=== PATIENT | male | born 1970 | race Caucasian/White ===

== ENCOUNTER 2024-03-25 10:36 | Inpatient (IN) | payer MEDICARE, MEDICAID ==
[2024-03-25 12:20] LABS: Amphetamine Screen,Urine Not Detected (NotDetected); Barbiturate Screen,Urine Not Detected (NotDetected); Benzodiazepines Screen,Urine Detected (NotDetected); Cocaine Screen,Urine Not Detected (NotDetected); Methadone Screen, Urine Not Detected (NotDetected); Opiate Screen,Urine Not Detected (NotDetected); Oxycodone Screen, Urine Not Detected (NotDetected); Phencyclidine Screen,Urine Not Detected (NotDetected); Tricyclic Antidepressant,Urine Not Detected (NotDetected); Urn Cannabinoid Scrn Not Detected (NotDetected)
--- NOTE | 2024-03-25 13:20 | ED ---
Psych HPI - General Chief Complaint: Psychiatric Symptoms Stated Complaint: mental health Time Seen by Provider: 03/25/24 10:37 Source: patient, RN notes reviewed Mode of arrival: ambulatory Limitations: no limitations - History of Present Illness Initial Comments: 53-year-old male presents emergency department with chief complaint of depression, suicide ideation patient states that he is bipolar, depression. Patient states that he had an episode over the weekend in which she took multiple Ativan that is prescribed. Patient states that he slept most of Sunday states that he still remains depressed and states that he feels like he cannot harm self he denies any alcohol or drug use. Patient states he currently has a therapist. Patient denies any homicidal ideation - Related Data Home Medications Medication Instructions Recorded Confirmed ARIPiprazole [Abilify] 30 mg PO DAILY 01/12/14 03/25/24 Esomeprazole Magnesium [NexIUM] 40 mg PO DAILY 01/12/14 03/25/24 LORazepam [Ativan] 1 mg PO DAILY PRN 01/12/14 03/25/24 lisinopriL [Zestril] 20 mg PO DAILY 01/12/14 03/25/24 Atorvastatin [Lipitor] 80 mg PO HS 03/25/24 03/25/24 Divalproex ER [Depakote ER] 1,000 mg PO BID 03/25/24 03/25/24 Empagliflozin [Jardiance] 25 mg PO DAILY 03/25/24 03/25/24 Ezetimibe [Zetia] 10 mg PO DAILY 03/25/24 03/25/24 Insulin Glargine,Hum.rec.anlog 70 units SQ HS 03/25/24 03/25/24 [Toujeo Max Solostar] Levothyroxine Sodium [Synthroid] 75 mcg PO DAILY 03/25/24 03/25/24 Mv-Min/Folic/K1/Lycopen/Lutein 1 tab PO DAILY 03/25/24 03/25/24 [Centrum Silver Men Tablet] Tirzepatide [Mounjaro] 7.5 mg SQ BAHENA 03/25/24 03/25/24 Venlafaxine HCl [Effexor XR] 225 mg PO DAILY 03/25/24 03/25/24 Allergies Allergy/AdvReac Type Severity Reaction Status Date / Time No Known Allergies Allergy Verified 03/25/24 11:26 Review of Systems ROS Statement: Those systems with pertinent positive or pertinent negative responses have been documented in the HPI. ROS Other: All systems not noted in ROS Statement are negative. Past Medical History Past Medical History: Asthma, Diabetes Mellitus, GERD/Reflux, Hyperlipidemia, Hypertension Additional Past Medical History / Comment(s): STATES TOLD SLIGHT ASTHMA (NO MEDS) History of Any Multi-Drug Resistant Organisms: None Reported Past Surgical History: Hernia Repair Additional Past Surgical History / Comment(s): UMBILICAL HERNIA Past Anesthesia/Blood Transfusion Reactions: No Reported Reaction, Motion Sickness Past Psychological History: Anxiety, Bipolar, Depression Smoking Status: Never smoker Past Alcohol Use History: Occasional Past Drug Use History: None Reported General Exam Limitations: no limitations General appearance: alert, in no apparent distress Head exam: Present: atraumatic, normocephalic, normal inspection Eye exam: Present: normal appearance, PERRL, EOMI. Absent: scleral icterus, conjunctival injection, periorbital swelling ENT exam: Present: normal exam, normal oropharynx, mucous membranes moist Neck exam: Present: normal inspection. Absent: tenderness, meningismus, lymphadenopathy Respiratory exam: Present: normal lung sounds bilaterally. Absent: respiratory distress, wheezes, rales, rhonchi, stridor Cardiovascular Exam: Present: regular rate, normal rhythm, normal heart sounds. Absent: systolic murmur, diastolic murmur, rubs, gallop, clicks Neurological exam: Present: alert, oriented X3, CN II-XII intact Psychiatric exam: Present: depressed, flat affect Course Vital Signs 03/25/24 10:37 Temperature 97.9 F Pulse Rate 80 Respiratory 20 Rate Blood Pressure 134/82 O2 Sat by Pulse 99 Oximetry Medical Decision Making - Medical Decision Making Was pt. sent in by a medical professional or institution (, PA, MACHINE EGG WASHER, urgent care, hospital, or senior living...) When possible be specific @ -No Did you speak to anyone other than the patient for history (EMS, parent, family, police, friend...)? What history was obtained from this source @ -No Did you review nursing and triage notes (agree or disagree)? Why? @ -I reviewed and agree with nursing and triage notes Were old charts reviewed (outside hosp., previous admission, EMS record, old EKG, old radiological studies, urgent care reports/EKG's, senior living records)? Report findings @ -No old charts were reviewed Differential Diagnosis (chest pain, altered mental status, abdominal pain women, abdominal pain men, vaginal bleeding, weakness, fever, dyspnea, syncope, headache, dizziness, GI bleed, back pain, seizure, CVA, palpatations, mental health, musculoskeletal)? @ -Differential Mental Health Depression, anxiety, bipolar, psychosis, schizophrenia, borderline personality, situational depression, adjustment disorder, behavioral disorder, brain tumor, malingering, substance abuse, encephalopathy, medication reaction, dementia, hypothyroidism, degenerative neurologic disorder, lupus.... This is not meant to be all-inclusive list EKG interpreted by me (3pts min.). @ -None X-rays interpreted by me (1pt min.). @ -None done CT interpreted by me (1pt min.). @ -None done U/S interpreted by me (1pt. min.). @ -None done What testing was considered but not performed or refused? (CT, X-rays, U/S, labs)? Why? @ -None What meds were considered but not given or refused? Why? @ -None Did you discuss the management of the patient with other professionals (professionals i.e. , PA, MACHINE EGG WASHER, lab, RT, psych nurse, perinatal social worker, operating engineer apprentice, teacher, aoc director combat plans officer, special education case manager)? Give summary @ -EPS evaluated patient discussed case with psychiatrist recommends inpatient treatment. Was smoking cessation discussed for >3mins.? @ -No Was critical care preformed (if so, how long)? @ -No Were there social determinants of health that impacted care today? How? (Homelessness, low income, unemployed, alcoholism, drug addiction, transportation, low edu. Level, literacy, decrease access to med. care, skilled nursing, rehab)? @ -No Was there de-escalation of care discussed even if they declined (Discuss DNR or withdrawal of care, Hospice)? DNR status @ -No What co-morbidities impacted this encounter? (DM, HTN, Smoking, COPD, CAD, Cancer, CVA, ARF, Chemo, Hep., AIDS, mental health diagnosis, sleep apnea, morbid obesity)? @ -Bipolar, depression Was patient admitted / discharged? Hospital course, mention meds given and route, prescriptions, significant lab abnormalities, going to OR and other pertinent info. @ -Admitted to 3 W. Undiagnosed new problem with uncertain prognosis? @ -No Drug Therapy requiring intensive monitoring for toxicity (Heparin, Nitro, Insulin, Cardizem)? @ -No Were any procedures done? @ -No Diagnosis/symptom? @ -Bipolar disorder, depression, suicidal ideation Acute, or Chronic, or Acute on Chronic? @ -Acute Uncomplicated (without systemic symptoms) or Complicated (systemic symptoms)? @ -Complicated Side effects of treatment? @ -No Exacerbation, Progression, or Severe Exacerbation? @ -No Poses a threat to life or bodily function? How? (Chest pain, USA, ID, pneumonia, PE, COPD, DKA, ARF, appy, cholecystitis, CVA, Diverticulitis, Homicidal, Suicidal, threat to staff... and all critical care pts) @ -Yes suicidal - Lab Data Lab Results 03/25/24 Range/Units 11:36 Urine Opiates Screen Not Detected (NotDetected) Ur Oxycodone Screen Not Detected (NotDetected) Urine Methadone Screen Not Detected (NotDetected) Ur Barbiturates Screen Not Detected (NotDetected) U Tricyclic Antidepress Not Detected (NotDetected) Ur Phencyclidine Scrn Not Detected (NotDetected) Ur Amphetamines Screen Not Detected (NotDetected) U Methamphetamines Scrn Not Detected (NotDetected) U Benzodiazepines Scrn Detected H (NotDetected) Urine Cocaine Screen Not Detected (NotDetected) U Marijuana (THC) Screen Not Detected (NotDetected) Disposition Clinical Impression: Depression, Suicidal ideation, Bipolar disorder Disposition: TRANSFER TO PSYCH HOSP/UNIT Referrals: Jin Oneil DO [Primary Care Provider] - 1-2 days Time of Disposition: 13:20
[2024-03-25 15:30] LABS: Glucose,Whole Blood 303 mg/dL (70-110)
[2024-03-25] MEDS ORDERED: MAGNESIUM HYDROXIDE 2,400 MG/30 ML CUP PO PRN (16:37)
[2024-03-25] MEDS ORDERED: MAG HYDROX/AL HYDROX/SIMETH 355 ML BOTTLE PO PRN (16:37)
[2024-03-25] MEDS ORDERED: ACETAMINOPHEN TAB 325 MG TAB PO PRN (16:37)
[2024-03-25] MEDS ORDERED: HALOPERIDOL LACTATE 5 MG/ML 1 ML VIAL IM PRN (16:37)
[2024-03-25] MEDS ORDERED: IBUPROFEN 600 MG TAB PO PRN (16:37)
[2024-03-25] MEDS ORDERED: haloperidoL 5 MG TAB PO PRN (16:37)
[2024-03-25] MEDS ORDERED: LORazepam 2 MG/ML INJ IM PRN (16:37)
[2024-03-25 18:23] LABS: Glucose,Whole Blood 247 mg/dL (70-110)
[2024-03-25 19:22] VITALS: RESP 16
[2024-03-25 20:04] LABS: Appearance,Urine Clear (Clear); Bilirubin,Urine Negative (Negative); Blood,Urine Negative (Negative); Color,Urine Colorless; Glucose,Urine (UA) 4+ (Negative); Ketones,Urine Negative (Negative); Leukocyte Esterase,Urine Negative (Negative); Nitrite,Urine Negative (Negative); PH, Urine 6.5 (5.0-8.0); Protein,Urine Negative (Negative); Specific Gravity,Urine 1.025 (1.001-1.035); Urobilinogen,Urine <2.0 mg/dL (<2.0)
[2024-03-25] MEDS: DIVALPROEX ER 500 MG TAB.ER.24H PO SCH (20:42)
[2024-03-25] MEDS: ATORVASTATIN 80 MG TAB PO SCH (20:42)
[2024-03-25 21:34] LABS: Glucose,Whole Blood 275 mg/dL (70-110)
[2024-03-25] MEDS ORDERED: INSULIN DETEMIR (LEVEMIR) 100 UNIT/ML SYR SQ SCH (22:00)
[2024-03-25] MEDS: INSULIN DETEMIR (LEVEMIR) 100 UNIT/ML SYR SQ SCH (22:04)
[2024-03-26] MEDS: LEVOTHYROXINE 75 MCG TAB PO SCH (06:11)
[2024-03-26 07:54] LABS: Glucose,Whole Blood 137 mg/dL (70-110)
[2024-03-26 08:22] LABS: Basophils % (A) 1 %; Eosinophils # (A) 0.2 k/uL (0-0.7); Eosinophils % (A) 3 %; HCT 41.7 % (39.0-53.0); HGB 13.4 gm/dL (13.0-17.5); Lymphocytes # (A) 2.3 k/uL (1.0-4.8); Lymphocytes % (A) 31 %; MCH 27.8 pg (25.0-35.0); MCHC 32.2 g/dL (31.0-37.0); MCV 86.1 fL (80.0-100.0); Monocytes # (A) 0.6 k/uL (0-1.0); Monocytes % (A) 8 %; Neutrophils # (A) 4.2 k/uL (1.3-7.7); Neutrophils % (A) 57 %; Platelet Count 251 k/uL (150-450); RBC 4.84 m/uL (4.30-5.90); RDW 15.2 % (11.5-15.5); WBC 7.5 k/uL (3.8-10.6)
[2024-03-26 08:38] LABS: ALT 21 U/L (4-49); AST 33 U/L (17-59); African American GFR (CKD) >90 (>60 ml/min/1.73 sqM); Alkaline Phosphatase 44 U/L (38-126); Anion Gap 10 mmol/L; Blood Urea Nitrogen 16 mg/dL (9-20); Calcium 9.6 mg/dL (8.4-10.2); Carbon Dioxide 25 mmol/L (22-30); Chloride 105 mmol/L (98-107); Glucose 139 mg/dL (74-99); Non-African American GFR(CKD) >90 (>60 ml/min/1.73 sqM); Potassium 4.1 mmol/L (3.5-5.1); Sodium 140 mmol/L (137-145); Total Bilirubin 0.7 mg/dL (0.2-1.3); Total Protein 6.9 g/dL (6.3-8.2)
[2024-03-26] MEDS: EZETIMIBE 10 MG TAB PO SCH (08:51)
[2024-03-26] MEDS: DAPAGLIFLOZIN PROPANEDIOL 10 MG TABLET PO SCH (08:51)
[2024-03-26] MEDS: ARIPiprazole 15 MG TAB PO SCH (08:51)
[2024-03-26] MEDS: NICOTINE 14MG/24HR PATCH TRANSDERM SCH (08:51)
[2024-03-26] MEDS: PANTOPRAZOLE 40 MG TABLET PO SCH (08:52)
[2024-03-26] MEDS: VENLAFAXINE HCL ER 75 MG CAP PO SCH (08:52)
[2024-03-26] MEDS: lisinopriL 20 MG TAB PO SCH (08:52)
[2024-03-26] MEDS: MULTIVITAMINS, THERA 1 EACH TAB PO SCH (08:52)
--- NOTE | 2024-03-26 12:38 | P.HP ---
Psychiatric H&P - . H&P Date: 03/26/24 History & Physical: Allergies Allergy/AdvReac Type Severity Reaction Status Date / Time No Known Allergies Allergy Verified 03/25/24 11:26 Vital Signs Temp 97.2 F L 03/26/24 06:11 Pulse 95 03/26/24 06:11 Resp 16 03/26/24 06:11 BP 109/71 03/26/24 06:11 Pulse Ox 96 03/26/24 06:11 FiO2 Intake & Output 03/25/24 03/26/24 03/26/24 18:59 06:59 18:59 Weight 141.974 kg 141.974 kg Laboratory Last Values WBC 7.5 k/uL (3.8-10.6) 03/26/24 07:54 RBC 4.84 m/uL (4.30-5.90) 03/26/24 07:54 Hgb 13.4 gm/dL (13.0-17.5) 03/26/24 07:54 Hct 41.7 % (39.0-53.0) 03/26/24 07:54 MCV 86.1 fL (80.0-100.0) 03/26/24 07:54 MCH 27.8 pg (25.0-35.0) 03/26/24 07:54 MCHC 32.2 g/dL (31.0-37.0) 03/26/24 07:54 RDW 15.2 % (11.5-15.5) 03/26/24 07:54 Plt Count 251 k/uL (150-450) 03/26/24 07:54 MPV 8.0 03/26/24 07:54 Neutrophils % 57 % 03/26/24 07:54 Lymphocytes % 31 % 03/26/24 07:54 Monocytes % 8 % 03/26/24 07:54 Eosinophils % 3 % 03/26/24 07:54 Basophils % 1 % 03/26/24 07:54 Neutrophils # 4.2 k/uL (1.3-7.7) 03/26/24 07:54 Lymphocytes # 2.3 k/uL (1.0-4.8) 03/26/24 07:54 Monocytes # 0.6 k/uL (0-1.0) 03/26/24 07:54 Eosinophils # 0.2 k/uL (0-0.7) 03/26/24 07:54 Basophils # 0.0 k/uL (0-0.2) 03/26/24 07:54 Sodium 140 mmol/L (137-145) 03/26/24 07:54 Potassium 4.1 mmol/L (3.5-5.1) 03/26/24 07:54 Chloride 105 mmol/L (98-107) 03/26/24 07:54 Carbon Dioxide 25 mmol/L (22-30) 03/26/24 07:54 Anion Gap 10 mmol/L 03/26/24 07:54 BUN 16 mg/dL (9-20) 03/26/24 07:54 Creatinine 0.68 mg/dL (0.66-1.25) 03/26/24 07:54 Est GFR (CKD-EPI)AfAm >90 (>60 ml/min/1.73 sqM) 03/26/24 07:54 Est GFR (CKD-EPI)NonAf >90 (>60 ml/min/1.73 sqM) 03/26/24 07:54 Glucose 139 mg/dL (74-99) H 03/26/24 07:54 POC Glucose (mg/dL) 137 mg/dL (70-110) H 03/26/24 07:53 POC Glu Immigration Officer ID Rigo Raza 03/26/24 07:[address] Glu mg/dL 186 mg/dL 03/26/24 07:54 Hemoglobin A1c 8.1 % (<=6.0) H 03/26/24 07:54 Calcium 9.6 mg/dL (8.4-10.2) 03/26/24 07:54 Total Bilirubin 0.7 mg/dL (0.2-1.3) 03/26/24 07:54 AST 33 U/L (17-59) 03/26/24 07:54 ALT 21 U/L (4-49) 03/26/24 07:54 Alkaline Phosphatase 44 U/L (38-126) 03/26/24 07:54 Total Protein 6.9 g/dL (6.3-8.2) 03/26/24 07:54 Albumin 4.0 g/dL (3.5-5.0) 03/26/24 07:54 TSH 3.390 mIU/L (0.465-4.680) 03/26/24 07:54 Urine Color Colorless 03/25/24 19:51 Urine Appearance Clear (Clear) 03/25/24 19:51 Urine pH 6.5 (5.0-8.0) 03/25/24 19:51 Ur Specific [place] 1.025 (1.001-1.035) 03/25/24 19:51 Urine Protein Negative (Negative) 03/25/24 19:51 Urine Glucose (UA) 4+ (Negative) H 03/25/24 19:51 Urine Ketones Negative (Negative) 03/25/24 19:51 Urine Blood Negative (Negative) 03/25/24 19:51 Urine Nitrite Negative (Negative) 03/25/24 19:51 Urine Bilirubin Negative (Negative) 03/25/24 19:51 Urine Urobilinogen <2.0 mg/dL (<2.0) 03/25/24 19:51 Ur Leukocyte Esterase Negative (Negative) 03/25/24 19:51 Urine Opiates Screen Not Detected (NotDetected) 03/25/24 11:36 Ur Oxycodone Screen Not Detected (NotDetected) 03/25/24 11:36 Urine Methadone Screen Not Detected (NotDetected) 03/25/24 11:36 Ur Barbiturates Screen Not Detected (NotDetected) 03/25/24 11:36 U Tricyclic Antidepress Not Detected (NotDetected) 03/25/24 11:36 Ur Phencyclidine Scrn Not Detected (NotDetected) 03/25/24 11:36 Ur Amphetamines Screen Not Detected (NotDetected) 03/25/24 11:36 U Methamphetamines Scrn Not Detected (NotDetected) 03/25/24 11:36 U Benzodiazepines Scrn Detected (NotDetected) H 03/25/24 11:36 Urine Cocaine Screen Not Detected (NotDetected) 03/25/24 11:36 U Marijuana (THC) Screen Not Detected (NotDetected) 03/25/24 11:36 SARS-CoV-2 (PCR) Not Detected (Not Detectd) 03/25/24 13:40 03/26/24 12:18 IDENTIFYING DATA: Patient is a 53-year-old single male, on disability and living in [place] CHIEF COMPLAINT: Suicide attempt via overdose HPI: Patient presented to the hospital on 03/25 with mental health concerns. Per ED note, "patient states that he had an episode over the weekend in which he took multiple Ativan that is prescribed." EPS evaluation revealed "patient reports suicide attempt via OD of 29 1 mg Ativan on 03/23/2024. Patient states after he woke up he was still angry and thus he decided to get help. Patient reports several plans such as jumping off of an overpass into traffic, buying a gun to shoot himself in the ware, or go behind the garage to slit his wrist bleed out. Patient states experiencing passive suicidal ideations often." Patient seen and evaluated on the unit but was agreeable to talk to the ad writer in office. He reports he "blew up over something small" and that he took 29 Ativan on Sunday in an attempt to harm himself however he ended up sleeping most of it off. He states having some issues with his [employer] order and even though he was able to figure it out he was still irritable and that this was what prompted the OD. He states having low frustration tolerance and that this tends to lead to anger and irritability that then leads to suicidal thoughts. He reports history of destruction of property when upset however reports feeling remorseful afterwards. He states this occurs roughly 12 times a year. He denied any sleep or appetite difficulties, low energy or anhedonia but did report hopelessness when he has inability to control his anger. He reports visual hallucinations on occasion described as seeing animals however he states this is not distressing for him and he is able to identify them as not being real. He reports anxiety and restlessness. He reports a history of elevated mood lasting several days in addition to racing thoughts and increased goal- directed activities. He reports adherence with his medications. Patient denies any suicidal or homicidal ideations intent or plan. At this time patient denies any auditory or visual hallucinations. Patient denies any flight of ideas racing thoughts and increased in goal directed behavior. PAST PSYCHIATRIC HISTORY: Patient has a history of bipolar disorder. He is currently prescribed Abilify 30 mg daily, Ativan 1 mg as needed daily, Depakote ER 1000 mg twice daily, Effexor XR 225 mg daily. He reports trialing several psychotropic medications in the past including Seroquel, Latuda, Zyprexa, Prozac, Zoloft, Lexapro, Cymbalta, Wellbutrin. Patient denies any previous psychiatric hospitalizations. Patient sees ad writer Jordan Brody at [facility]. Patient reports 1 prior suicide attempt via OD many years ago PMH: as per ER note ALLERGIES: as per EMR SUBSTANCE USE HISTORY: Patient denies any substances however reports previously using cannabis. FAMILY PSYCHIATRIC/SUBSTANCE USE HISTORY: Patient reports bipolar disorder in his mother, alcohol abuse in his grandmother, and that a cousin committed suicide SOCIAL HISTORY: Patient was born and raised in [place] but currently staying in [place]. He is single and has no children and living with a roommate. He completed school up to the 12th grade. MENTAL STATUS EXAM: General Appearance: Patient appears to be stated age is alert, directable, and attempts to cooperate. Patient appears to have poor hygiene and grooming. Behavior: Patient is seated without any agitated behavior. Speech: Patient's speech is fluent and nonpressured. Mood/Affect: Patient reports their mood is "all right", affect is congruent and constricted. Suicidality/Homicidality: Patient denies having any homicidal ideation intent or plan. Denies any suicidal ideations intent or plan Perceptions: Patient denies any visual hallucinations and denies any auditory hallucinations Though content/process: There is no evidence of any delusional thought content and thought process is linear and goal-directed. Memory and concentration: AOX3, grossly intact for the purposes of this session. Can spell "WORLD" backwards Judgment and insight: Poor STRENGTHS/WEAKNESSES: strength is that patient is resilient and uses no substances, willing to seek help. Weakness is that patient has poor judgment and is impulsive INTELLECT: Average IMPRESSIONS: Suicide attempt via overdose on Ativan Bipolar II disorder with mixed features Intermittent explosive disorder PLAN: -Patient is admitted under voluntary status to MHU for stabilization of psychiatric symptoms and safety. Patient has signed adult voluntary form and medication consent and is placed in patient's chart. -Medications : Discontinue Abilify 30 mg and start Risperdal 1 mg at bedtime for bipolar disorder/mood stabilization, continue Depakote ER 1000 mg twice daily, Effexor XR 225 mg daily -Ativan and Haldol PRN for agitation/aggression -Ordered Depakote level to be obtained tomorrow morning -Patient was informed of the risks, benefits and side effects of the medication and patient verbally consented to taking the medications. Patient signed med consent form and was placed in chart. -Internal Medicine consult to perform medical evaluation and physical. -NRT -not needed as patient does not smoke -SW on board for discharge planning. Encourage patient to participate in groups to work on coping skills.
[2024-03-26 12:43] LABS: Glucose,Whole Blood 162 mg/dL (70-110)
[2024-03-26 16:28] LABS: Chol/HDL Ratio 3.48 Ratio; LDL Cholesterol,Calculated 44.8 mg/dL (0.0-131.0)
[2024-03-26 17:37] LABS: Glucose,Whole Blood 157 mg/dL (70-110)
[2024-03-26 20:08] LABS: Glucose,Whole Blood 261 mg/dL (70-110)
[2024-03-26] MEDS: risperiDONE 1 MG TAB PO SCH (21:44)
[2024-03-26] MEDS: LORazepam 1 MG TAB PO PRN (21:46)
[2024-03-27 07:46] LABS: Glucose,Whole Blood 158 mg/dL (70-110)
[2024-03-27] MEDS ORDERED: DEXTROSE 50% SYRINGE 50 ML IVP PRN ×2 (08:42)
--- NOTE | 2024-03-27 09:05 | P.MDCNMH ---
History of Present Illness H&P Date: 03/26/24 This is a 53-year-old male who was recently admitted under psychiatric services for psychiatric evaluation as patient had significant depression with suicidal ideation and over the weekend took multiple medications that were prescribed to him including Ativan. Patient reports he follows with Dr. Oneil in the outpatient setting with a past medical history of diabetes, GERD, hyperlipidemia, hypertension, anxiety/bipolar depression denies any illicit drug use never smoked and occasionally drinks alcohol. Patient has been having increased depression with suicidal thoughts and was admitted for further evaluation. Patient is voluntarily admitted to [facility]. On exam vital signs are stable and patient denies any significant complaints has been compliant with group therapy sessions and compliant with medications. No reports of chest pain or shortness of breath. Patient denies any nausea or vomiting and has been tolerating diet. Patient reports his blood sugars are controlled and does use insulin at home. Patient does take Toujeo and will continue with long-acting and sliding scale while here and may resume his Toujeo and Mounjaro in the outpatient setting. Review of systems: Constitutional: No reports of fatigue, fever, or chills Cardiovascular: No reports of chest pain or palpitations Respiratory: No reports of shortness of breath or cough GI: No reports of nausea, no reports of vomiting, no diarrhea : No reports of dysuria or retention Neurovascular: No reports of generalized weakness All medications have been reviewed PHYSICAL EXAMINATION: GENERAL: The patient is alert and oriented x4, Well developed, well nourished. Morbidly obese HEENT: Pupils are round and equally reacting to light. EOMI. no scleral icterus. No conjunctival pallor. Normocephalic, atraumatic. No pharyngeal erythema. No thyromegaly. CARDIOVASCULAR: S1 and S2 muffled PULMONARY: diminished breath sounds bilaterally with no wheezing or rhonchi noted. ABDOMEN: soft. Nontender on exam. obese. non-distended, normoactive bowel sounds. No palpable organomegaly. MUSCULOSKELETAL: No joint swelling or deformity. EXTREMITIES: No cyanosis, clubbing, or pedal edema. NEUROLOGICAL: Gross neurological examination did not reveal any focal deficits. Diffuse weakness SKIN: No rashes. Assessment: Severe depression with suicidal ideation, took multiple pills with attempted suicide History of anxiety/depression/bipolar Reported history of asthma although patient reports he does not have asthma maybe as a child and does not take any medications for this Diabetes mellitus, type 2 insulin-dependent uncontrolled with hyperglycemia GERD Hyperlipidemia Hypertension Obesity with a BMI of 37.1 GI prophylaxis DVT prophylaxis Full code Plan: Recommend to continue with current medications and management and admitted to psychiatric services on 3 W. for further psychiatric evaluation. Home medications reviewed and resumed as appropriate Recommend sliding scale with Accu-Cheks before meals and at bedtime and also will add long-acting. Continue to hold Mounjaro and Toujeo until outpatient follow-up Patient encouraged to attend group therapy sessions and compliance with medications Thank you kindly for this consultation. Please do not hesitate to contact us with any questions or concerns Recommend follow-up with Dr. Oneil in the outpatient setting on discharge The impression and plan of care has been dictated by Ashanti Nicolas, nurse practitioner as directed. Dr. Adrian MD I have performed a history and examination and MDM of this patient, discussed the same with the dictator, and agree with the dictator's assessment and plan as written ,documented as a scribe. Based on total visit time, I have performed more than 50% of the visit. Any additional findings or plans will be noted. Past Medical History Past Medical History: Asthma, Diabetes Mellitus, GERD/Reflux, Hyperlipidemia, Hypertension Additional Past Medical History / Comment(s): STATES TOLD SLIGHT ASTHMA (NO MEDS) History of Any Multi-Drug Resistant Organisms: None Reported Past Surgical History: No Surgical Hx Reported, Hernia Repair Additional Past Surgical History / Comment(s): UMBILICAL HERNIA Past Anesthesia/Blood Transfusion Reactions: No Reported Reaction, Motion Sickness Past Psychological History: Anxiety, Bipolar, Depression Smoking Status: Never smoker Past Alcohol Use History: Occasional Past Drug Use History: None Reported Medications and Allergies Home Medications Medication Instructions Recorded Confirmed Type ARIPiprazole [Abilify] 30 mg PO DAILY 01/12/14 03/25/24 History Esomeprazole Magnesium [NexIUM] 40 mg PO DAILY 01/12/14 03/25/24 History LORazepam [Ativan] 1 mg PO DAILY PRN 01/12/14 03/25/24 History lisinopriL [Zestril] 20 mg PO DAILY 01/12/14 03/25/24 History Atorvastatin [Lipitor] 80 mg PO HS 03/25/24 03/25/24 History Divalproex ER [Depakote ER] 1,000 mg PO BID 03/25/24 03/25/24 History Empagliflozin [Jardiance] 25 mg PO DAILY 03/25/24 03/25/24 History Ezetimibe [Zetia] 10 mg PO DAILY 03/25/24 03/25/24 History Insulin Glargine,Hum.rec.anlog 70 units SQ HS 03/25/24 03/25/24 History [Toujeo Max Solostar] Levothyroxine Sodium [Synthroid] 75 mcg PO DAILY 03/25/24 03/25/24 History Mv-Min/Folic/K1/Lycopen/Lutein 1 tab PO DAILY 03/25/24 03/25/24 History [Centrum Silver Men Tablet] Tirzepatide [Mounjaro] 7.5 mg SQ BAHENA 03/25/24 03/25/24 History Venlafaxine HCl [Effexor XR] 225 mg PO DAILY 03/25/24 03/25/24 History Allergies Allergy/AdvReac Type Severity Reaction Status Date / Time No Known Allergies Allergy Verified 03/25/24 11:26 Physical Exam Vitals: Vital Signs Temp Pulse Pulse Resp BP BP Pulse Ox 03/26/24 06:11 97.2 F L 95 16 109/71 96 03/25/24 19:01 97.7 F 73 16 128/71 03/25/24 18:22 78 18 135/79 99 03/25/24 10:37 97.9 F 80 20 134/82 99 Intake and Output 03/25/24 03/26/24 03/26/24 22:59 06:59 14:59 Other: Weight 141.974 kg Cranial Nerve Examination - Cranial Nerves Cranial Nerve I- Olfactory: Intact Cranial Nerve II- Optic: Intact Cranial Nerve III- Oculomotor: Intact Cranial Nerve IV- Trochlear: Intact Cranial Nerve V- Trigeminal: Intact Cranial Nerve - Abducens: Intact Cranial Nerve VII- Facial: Intact Cranial Nerve VIII- Auditory: Intact Cranial Nerve IX- Glossopharyngeal: Intact Cranial Nerve X- Vagus: Intact Cranial Nerve XI- Accessory: Intact Cranial Nerve XII- Hypoglossal: Intact Results CBC & Chem 7: 03/26/24 07:54 03/26/24 07:54 Labs: Abnormal Lab Results - Last 24 Hours (Table) 03/25/24 03/25/24 03/25/24 Range/Units 11:36 15:21 18:21 Glucose (74-99) mg/dL POC Glucose (mg/dL) 303 H 247 H (70-110) mg/dL Urine Glucose (UA) (Negative) U Benzodiazepines Scrn Detected H (NotDetected) 03/25/24 03/25/24 03/26/24 Range/Units 19:51 21:33 07:53 Glucose (74-99) mg/dL POC Glucose (mg/dL) 275 H 137 H (70-110) mg/dL Urine Glucose (UA) 4+ H (Negative) U Benzodiazepines Scrn (NotDetected) 03/26/24 Range/Units 07:54 Glucose 139 H (74-99) mg/dL POC Glucose (mg/dL) (70-110) mg/dL Urine Glucose (UA) (Negative) U Benzodiazepines Scrn (NotDetected)
--- NOTE | 2024-03-27 11:54 | P.PN ---
Progress Note - Text Progress Note Date: 03/27/24 Interval History: Patient was seen wandering the hallways and was directable and agreeable to sp tony with bond underwriter in the office. He states feeling better today. Depakote level came back subtherapeutic at 38.7 and he was in agreement with titrating this today. He wishes to return home today due to Halloween and feels like he has made significant improvements in that he is more positive and remorseful for his past actions. He states he did sleep poorly last night but only because he slept mostly during the day. He reports good appetite and expressed no other concerns today. At this time patient denies any suicidal or homicidal ideations, intent or plan. Patient denies any auditory, visual hallucinations and denies any paranoia or delusions. Patient denies any side effects from the medications and has been compliant with meds. Mental Status Exam: General Appearance: Patient appears to be stated age is alert, directable, and cooperative. Hygiene and grooming improved Behavior: Patient is calmly seated without any agitated behavior. Speech: Patient's speech is fluent and nonpressured. Mood/Affect: Mood is improving mildly, affect is congruent and blunted. Suicidality/Homicidality: Patient denies having any suicidal or homicidal ideation intent or plan. Perceptions: Patient denies any visual hallucinations and denies any auditory hallucinations Though content/process: There is no evidence of any delusional thought content and thought process is linear and goal-directed. Memory and concentration: AOX3, grossly intact for the purposes of this session Judgment and insight: Improving mildly Assessment Suicide attempt via overdose on Ativan Bipolar 2 disorder with mixed features Intermittent explosive disorder Plan: -Patient continues to meet criteria for inpatient psychiatric admission for symptom stabilization and safety. Patient has signed adult voluntary form and medication consent and was placed in patient's chart. -Medications: Abilify 30 discontinued yesterday, increase Risperdal to 2 mg at bedtime for bipolar disorder/mood stabilization, increase Depakote ER to 1000 mg daily and 1500 mg at bedtime, continue Effexor XR to 25 mg daily for depression -When necessary Ativan and Haldol for agitation/aggression. -Labs: reviewed -NRT - nicotine patch -SW on board for discharge planning. Encouraged the patient to participate in milieu. Anticipate discharge back home tomorrow, roommate confirmed no firearms in the home
[2024-03-27 12:43] LABS: Glucose,Whole Blood 201 mg/dL (70-110)
[2024-03-27] MEDS: INSULIN ASPART (NovoLOG) 100 UNIT/ML VIAL SQ SCH ×2 (12:58→17:41)
[2024-03-27 17:25] LABS: Glucose,Whole Blood 170 mg/dL (70-110)
[2024-03-27 19:53] LABS: Glucose,Whole Blood 182 mg/dL (70-110)
[2024-03-27] MEDS: DIVALPROEX ER 500 MG TAB.ER.24H PO SCH (21:08)
[2024-03-27] MEDS: risperiDONE 2 MG TAB PO SCH (21:08)
[2024-03-28 07:04] VITALS: PULSE 70; TEMP 97.3
[2024-03-28 07:05] VITALS: BP 110/64
[2024-03-28 07:57] LABS: Glucose,Whole Blood 144 mg/dL (70-110)
[2024-03-28] MEDS: DIVALPROEX ER 500 MG TAB.ER.24H PO SCH (08:58)
[2024-03-28] MEDS ORDERED: DIVALPROEX ER 500 MG TAB.ER.24H PO SCH (09:00)
--- NOTE | 2024-03-28 12:39 | P.DS ---
Providers Date of admission: 03/25/24 15:05 Expected date of discharge: 03/28/24 Attending physician: Sury Jones MD Consults: 03/25/24 16:37 Consult Physician [facility]ine [facility] Reason/Comments: H&P and medical and Toujeo dosage Do you want consulting provider notified?: Yes Primary care physician: Jin Oneil - Discharge Diagnosis(es) (1) Suicide attempt by benzodiazepine overdose Status: Acute Priority: High (2) Bipolar II disorder Status: Acute Priority: High (3) Intermittent explosive disorder Status: Acute Priority: High Hospital Course: Admission HPI: Admission note was completed by display card writer "Patient presented to the hospital on 03/25 with mental health concerns. Per ED note, "patient states that he had an episode over the weekend in which he took multiple Ativan that is prescribed." EPS evaluation revealed "patient reports suicide attempt via OD of 29 1 mg Ativan on 03/23/2024. Patient states after he woke up he was still angry and thus he decided to get help. Patient reports several plans such as jumping off of an overpass into traffic, buying a gun to shoot himself in the ware, or go behind the garage to slit his wrist bleed out. Patient states experiencing passive suicidal ideations often." Patient seen and evaluated on the unit but was agreeable to talk to the display card writer in office. He reports he "blew up over something small" and that he took 29 Ativan on Sunday in an attempt to harm himself however he ended up sleeping most of it off. He states having some issues with his [employer] order and even though he was able to figure it out he was still irritable and that this was what prompted the OD. He states having low frustration tolerance and that this tends to lead to anger and irritability that then leads to suicidal thoughts. He reports history of destruction of property when upset however reports feeling remorseful afterwards. He states this occurs roughly 12 times a year. He denied any sleep or appetite difficulties, low energy or anhedonia but did report hopelessness when he has inability to control his anger. He reports visual hallucinations on occasion described as seeing animals however he states this is not distressing for him and he is able to identify them as not being real. He reports anxiety and restlessness. He reports a history of elevated mood lasting several days in addition to racing thoughts and increased goal-directed activities. He reports adherence with his medications. Patient denies any suicidal or homicidal ideations intent or plan. At this time patient denies any auditory or visual hallucinations. Patient denies any flight of ideas racing thoughts and increased in goal directed behavior. " Hospital course: Upon admission to the unit patient was directable and agreeable to commence treatment and signed adult voluntary form.. Patient got along well with other patients on the unit and followed unit protocol. Patient was compliant with the medications and denied any side effects throughout hospital course. Patient was started on Risperdal and this was titrated up to 2 mg at bedtime with Abilify 30 mg been discontinued for bipolar disorder/mood stabilization, Depakote ER was increased to 1000 mg daily and 1500 mg at bedtime for mood stabilization, Effexor continued at 225 mg daily for depression. Depakote level at 1000 twice daily came back subtherapeutic at 38.7. Patient spoke of his stressors and engaged in therapy both group and individual. Patient's anger was addressed in the cycle of anger was discussed with patient encouraged to utilize coping skills when warning signs are present. Patient was also seen by medical team for history and physical exam. Throughout the course of the hospitalization patient gradually improved with regards to mood, anxiety, sleep and returned back to their baseline level of functioning. On the day of discharge patient denied any suicidal or homicidal ideations intent or plan denied any auditory or visual hallucinations. The patient denied any access to guns or weapons. Patient denied any paranoia and did not endorse any delusions. Patient does not have a significant history of substance abuse and was counseled on abstaining from all substances including alcohol and marijuana. Patient was also counseled on the medications and need for regular compliance and was encouraged to follow- up with their outpatient appointment for mental health and also for primary care. Prior to discharge a family meeting will be arranged by licensed social worker to answer any questions and ensure safety upon discharge including making sure that guns/weapons are either removed from the home or locked away. Patient to return home with roommate who confirmed no firearms in the home. He will follow-up with [facility]. Mental status exam: General Appearance: Patient appears to be stated age is alert, pleasant, and cooperative. Patient is in no acute distress and has improved hygiene and grooming Behavior: Patient is calmly seated without any agitated behavior. Speech: Patient's speech is fluent and nonpressured. Mood/Affect: Patient reports their mood is "better", affect is congruent and euthymic. Suicidality/Homicidality: Patient denies having any suicidal or homicidal ideation intent or plan. Perceptions: Patient denies any auditory or visual hallucinations. Though content/process: There is no evidence of any delusional thought content and thought process is linear and goal-directed. More future oriented Memory and concentration: AOX3, grossly intact for the purposes of this session. Can spell "WORLD" backwards correctly. Judgment and insight: Improved Impression: Suicide attempt via overdose on benzodiazepine (ativan) Bipolar 2 disorder with mixed features Intermittent explosive disorder Plan: -Continue with discharge today as patient has improved and stabilized psychiatrically and is not currently an imminent threat to themself and/or others. -Continue medications: Risperdal 2 mg at bedtime, Depakote ER 1000 mg daily and 1500 mg at bedtime, Effexor XR 225 mg daily -Patient was counseled on the need for medication compliance and appropriate follow-up at mental health and also primary care for medical issues. Patient verbalized understanding and agreed. -Social work to help coordinate patients discharge today. also to ensure safe home environment that guns/weapons are either removed from the home or locked away. Social work also to arrange for patients follow up appointments [facility] for psychiatric care along with follow up with primary care provider. -Patient counseled on abstaining from recreational drugs and marijuana and alcohol. Was informed/educated on the adverse effects on their physical and mental health. Patient verbally agreed and understood. -Patient was instructed to return to the hospital or seek immediate medical care if their psychiatric or medical symptoms do worsen or reoccur. Abnormal Labs 03/25/24 03/25/24 03/25/24 11:36 15:21 18:21 Glucose POC Glucose (mg/dL) 303 H 247 H Hemoglobin A1c Triglycerides HDL Cholesterol Urine Glucose (UA) U Benzodiazepines Scrn Detected H 03/25/24 03/25/24 03/26/24 19:51 21:33 07:53 Glucose POC Glucose (mg/dL) 275 H 137 H Hemoglobin A1c Triglycerides HDL Cholesterol Urine Glucose (UA) 4+ H U Benzodiazepines Scrn 03/26/24 03/26/24 03/26/24 07:54 07:54 12:42 Glucose 139 H POC Glucose (mg/dL) 162 H Hemoglobin A1c 8.1 H Triglycerides 186.00 H HDL Cholesterol 33.00 L Urine Glucose (UA) U Benzodiazepines Scrn 03/26/24 03/26/24 03/27/24 17:36 20:06 07:44 Glucose POC Glucose (mg/dL) 157 H 261 H 158 H Hemoglobin A1c Triglycerides HDL Cholesterol Urine Glucose (UA) U Benzodiazepines Scrn 03/27/24 03/27/24 03/27/24 12:41 17:23 19:52 Glucose POC Glucose (mg/dL) 201 H 170 H 182 H Hemoglobin A1c Triglycerides HDL Cholesterol Urine Glucose (UA) U Benzodiazepines Scrn 03/28/24 07:56 Glucose POC Glucose (mg/dL) 144 H Hemoglobin A1c Triglycerides HDL Cholesterol Urine Glucose (UA) U Benzodiazepines Scrn Vital Signs Temp 97.3 F L 03/28/24 07:03 Pulse 70 03/28/24 07:03 Resp 16 03/28/24 07:03 BP 110/64 03/28/24 07:03 Pulse Ox 97 03/27/24 06:42 FiO2 Allergies Allergy/AdvReac Type Severity Reaction Status Date / Time No Known Allergies Allergy Verified 03/25/24 11:26 Patient Condition at Discharge: Stable Plan - Discharge Summary Discharge Rx Participant: No New Discharge Prescriptions: New Divalproex ER [Depakote ER] 1,000 mg PO DAILY 30 Days #60 tab Divalproex ER [Depakote ER] 1,500 mg PO HS 30 Days #90 tab risperiDONE [RisperDAL] 2 mg PO HS 30 Days #30 tab Continue lisinopriL [Zestril] 20 mg PO DAILY Esomeprazole Magnesium [NexIUM] 40 mg PO DAILY Atorvastatin [Lipitor] 80 mg PO HS Mv-Min/Folic/K1/Lycopen/Lutein [Centrum Silver Men Tablet] 1 tab PO DAILY Tirzepatide [Mounjaro] 7.5 mg SQ BAHENA 30 Days #4 each Empagliflozin [Jardiance] 25 mg PO DAILY Ezetimibe [Zetia] 10 mg PO DAILY Levothyroxine Sodium [Synthroid] 75 mcg PO DAILY Venlafaxine HCl [Effexor XR] 225 mg PO DAILY 30 Days #90 cap Insulin Glargine,Hum.rec.anlog [Toujeo Max Solostar] 70 units SQ HS 30 Days #4 each Discontinued LORazepam [Ativan] 1 mg PO DAILY PRN PRN Reason: Anxiety ARIPiprazole [Abilify] 30 mg PO DAILY Divalproex ER [Depakote ER] 1,000 mg PO BID Discharge Medication List Esomeprazole Magnesium [NexIUM] 40 mg PO DAILY 01/12/14 [History] lisinopriL [Zestril] 20 mg PO DAILY 01/12/14 [History] Atorvastatin [Lipitor] 80 mg PO HS 03/25/24 [History] Empagliflozin [Jardiance] 25 mg PO DAILY 03/25/24 [History] Ezetimibe [Zetia] 10 mg PO DAILY 03/25/24 [History] Levothyroxine Sodium [Synthroid] 75 mcg PO DAILY 03/25/24 [History] Mv-Min/Folic/K1/Lycopen/Lutein [Centrum Silver Men Tablet] 1 tab PO DAILY 03/25/24 [History] Divalproex ER [Depakote ER] 1,000 mg PO DAILY 30 Days #60 tab 03/28/24 [Rx] Divalproex ER [Depakote ER] 1,500 mg PO HS 30 Days #90 tab 03/28/24 [Rx] Insulin Glargine,Hum.rec.anlog [Toujeo Max Solostar] 70 units SQ HS 30 Days #4 each 03/28/24 [Rx] Tirzepatide [Mounjaro] 7.5 mg SQ BAHENA 30 Days #4 each 03/28/24 [Rx] Venlafaxine HCl [Effexor XR] 225 mg PO DAILY 30 Days #90 cap 03/28/24 [Rx] risperiDONE [RisperDAL] 2 mg PO HS 30 Days #30 tab 03/28/24 [Rx] Follow up Appointment(s)/Referral(s): Nusrat Pérez [Outside] - 04/08/24 12:00 pm (04/08 @ 12:00 (earliest available) ) Jin Oneil DO [Primary Care Provider] - 1-2 days Patient Instructions/Handouts: Bipolar Disorder (DC), Depression (DC) Activity/Diet/Wound Care/Special Instructions: [facility] Discharge Info Avoid the use of street drugs and alcohol. Take all medications as prescribed. When you are in need of refills on your medications, please contact your outpatient medical provider and/or outpatient psychiatrist. Please go to your scheduled outpatient appointments for aftercare treatment. If symptoms return or become worse, call the crisis line at or and/or visit the nearest emergency room for assistance. National Suicide and Crisis Lifeline - call or text 598. Discharge Disposition: HOME SELF-CARE
--- NOTE | 2024-03-29 05:21 | P.PN ---
Subjective Progress Note Date: 03/28/24 This is a 53-year-old male who was recently admitted under psychiatric services for psychiatric evaluation as patient had significant depression with suicidal ideation and over the weekend took multiple medications that were prescribed to him including Ativan. Patient reports he follows with Dr. Oneil in the outpatient setting with a past medical history of diabetes, GERD, hyperlipidemia, hypertension, anxiety/bipolar depression denies any illicit drug use never smoked and occasionally drinks alcohol. Patient has been having increased depression with suicidal thoughts and was admitted for further evaluation. Patient is voluntarily admitted to [facility]. On exam vital signs are stable and patient denies any significant complaints has been compliant with group therapy sessions and compliant with medications. No reports of chest pain or shortness of breath. Patient denies any nausea or vomiting and has been tolerating diet. Patient reports his blood sugars are controlled and does use insulin at home. Patient does take Toujeo and will continue with long-acting and sliding scale while here and may resume his Toujeo and Mounjaro in the outpatient setting. 03/28/2024 Patient is seen in follow-up this morning scheduled for discharge and being requested to complete the med reconciliation as patient takes insulins. Patient has been instructed to follow-up with Dr. Oneil outpatient and continue monitoring blood sugars and will be placed back on Toujeo and Mounjaro. Prescriptions refills have been sent to the pharmacy. Patient instructed to continue monitoring Accu-Cheks and keep a diary of all readings for primary follow-up. Patient is medically stable for discharge once cleared by psychiatry. Review of systems: Constitutional: No reports of fatigue, fever, or chills Cardiovascular: No reports of chest pain or palpitations Respiratory: No reports of shortness of breath or cough GI: No reports of nausea, no reports of vomiting, no diarrhea : No reports of dysuria or retention Neurovascular: No reports of generalized weakness All medications have been reviewed PHYSICAL EXAMINATION: GENERAL: The patient is alert and oriented x4, Well developed, well nourished. Morbidly obese HEENT: Pupils are round and equally reacting to light. EOMI. no scleral icterus. No conjunctival pallor. Normocephalic, atraumatic. No pharyngeal erythema. No thyromegaly. CARDIOVASCULAR: S1 and S2 muffled PULMONARY: diminished breath sounds bilaterally with no wheezing or rhonchi noted. ABDOMEN: soft. Nontender on exam. obese. non-distended, normoactive bowel sounds. No palpable organomegaly. MUSCULOSKELETAL: No joint swelling or deformity. EXTREMITIES: No cyanosis, clubbing, or pedal edema. NEUROLOGICAL: Gross neurological examination did not reveal any focal deficits. Diffuse weakness SKIN: No rashes. Assessment: Severe depression with suicidal ideation, took multiple pills with attempted suicide History of anxiety/depression/bipolar Reported history of asthma although patient reports he does not have asthma maybe as a child and does not take any medications for this Diabetes mellitus, type 2 insulin-dependent uncontrolled with hyperglycemia GERD Hyperlipidemia Hypertension Obesity with a BMI of 37.1 GI prophylaxis DVT prophylaxis Full code Plan: Recommend to continue with current medications and management and admitted to psychiatric services on 3 W. for further psychiatric evaluation. Plan is for discharge today Home medications reviewed and reconciled including insulins. Prescription provided to the pharmacy Patient encouraged to continue monitoring blood sugars at home and keep a diary of readings for primary care follow-up Thank you kindly for this consultation. Please do not hesitate to contact us with any questions or concerns Recommend follow-up with Dr. Oneil in the outpatient setting on discharge The impression and plan of care has been dictated by Ashanti Nicolas, nurse practitioner as directed. Dr. Adrian MD I have performed a history and examination and MDM of this patient, discussed the same with the dictator, and agree with the dictator's assessment and plan as written ,documented as a scribe. Based on total visit time, I have performed more than 50% of the visit. Any additional findings or plans will be noted. Objective - Vital Signs Vital signs: Vital Signs Temp 97.3 F L 03/28/24 07:03 Pulse 70 03/28/24 07:03 Resp 16 03/28/24 07:03 BP 110/64 03/28/24 07:03 Pulse Ox 97 03/27/24 06:42 FiO2 - Labs CBC & Chem 7: 03/26/24 07:54 03/26/24 07:54 Labs: Abnormal Lab Results - Last 24 Hours (Table) 03/27/24 03/27/24 03/27/24 Range/Units 12:41 17:23 19:52 POC Glucose (mg/dL) 201 H 170 H 182 H (70-110) mg/dL 03/28/24 Range/Units 07:56 POC Glucose (mg/dL) 144 H (70-110) mg/dL
[2024-03-30] MEDS ORDERED: NON FORMULARY DRUG (Tirzepatide [Mounjaro] 7.5 MG/0.5 ML Pen.Injctr) SQ SCH (09:00)
== END 2024-03-28 11:28 | disposition home or self-care (01) | DRG 885 ==
LOC: EC 10:36 → 3MHU 15:05
PROVIDERS: ADMIT Psychiatry & Neurology Psychiatry; ATTEND Psychiatry & Neurology Psychiatry
DX: F31.81 Bipolar II disorder (principal); F63.81 Intermittent explosive disorder; E11.9 Type 2 diabetes mellitus without complications; E66.9 Obesity, unspecified; E78.5 Hyperlipidemia, unspecified; F41.9 Anxiety disorder, unspecified; I10 Essential (primary) hypertension; J45.909 Unspecified asthma, uncomplicated; T42.4X2A Poisoning by benzodiazepines, intentional self-harm, initial encounter; Z68.37 Body mass index [BMI] 37.0-37.9, adult; Z79.4 Long term (current) use of insulin; Z79.84 Long term (current) use of oral hypoglycemic drugs; Z79.890 Hormone replacement therapy; Z79.899 Other long term (current) drug therapy; Z81.8 Family history of other mental and behavioral disorders; Z91.51 Personal history of suicidal behavior; Z11.52 Encounter for screening for COVID-19
CPT/HCPCS: 80053; 80061; 80164; 80306; 81003; 82075; 83036; 84443; 85025; 87635; 99285

== ENCOUNTER → 2024-09-11 | Outpatient (CLI) | payer MEDICARE, MEDICAID | END | disposition home or self-care (01) | LOC: LABPAT 15:36 | PROVIDERS: ATTEND Surgery | DX: Z01.818 Encounter for other preprocedural examination (principal); R94.31 Abnormal electrocardiogram [ECG] [EKG] | CPT/HCPCS: 93005 ==

== ENCOUNTER → 2024-09-12 | Outpatient (CLI) | payer MEDICARE, MEDICAID ==
[2024-09-12 18:34] LABS: HCT 44.6 % (39.6-50.0); HGB 14.7 g/dL (13.0-17.0); MCH 27.8 pg (27.0-32.0); MCV 84.5 FL (80.0-97.0); Mean Platelet Volume 10.8 FL (9.5-12.2); NRBC Per 100 WBC 0 X 10*3/uL (0.00-0.01); Platelet Count 243 X 10*3/uL (140-440); RBC 5.28 X 10*6/uL (4.40-5.60); RDW 17.9 % (11.5-14.5)
== END | disposition home or self-care (01) ==
LOC: LABPAT 14:45
PROVIDERS: ATTEND Surgery
DX: Z01.812 Encounter for preprocedural laboratory examination (principal); K42.9 Umbilical hernia without obstruction or gangrene
CPT/HCPCS: 36415; 85027; 86850; 86900; 86901

== ENCOUNTER 2024-09-23 07:46 | Day surgery (SDC) | payer MEDICARE, OTHER ==
[2024-09-17 10:49] VITALS: BMI 37.9
[~2024-09-23 07:46] MED LIST: HYDROmorphone 0.5 MG/0.5 ML SYRINGE IVP PRN; LIDOCAINE 1% (10MG/ML) FOR IV START INTRADERMA PRN
[2024-09-23] MEDS: ACETAMINOPHEN TAB 500 MG TAB PO PRN (08:37)
[2024-09-23] MEDS: DEXAMETHASONE SOD PHOSPHATE 4 MG/ML 1 ML VIAL IV ONE (08:38)
[2024-09-23] MEDS: ONDANSETRON 4 MG/2 ML VIAL IVP ONE (08:38)
[2024-09-23] MEDS: LACTATED RINGERS 1,000 ML IV SCH (08:38)
[2024-09-23 08:42] LABS: Glucose,Whole Blood 107 mg/dL (70-110)
[2024-09-23 08:58] LABS: African American GFR (CKD) >90 (>60 ml/min/1.73 sqM); Anion Gap 9 mmol/L; Blood Urea Nitrogen 24 mg/dL (9-20); Calcium 9.4 mg/dL (8.4-10.2); Carbon Dioxide 24 mmol/L (22-30); Chloride 105 mmol/L (98-107); Glucose 112 mg/dL (74-99); Non-African American GFR(CKD) >90 (>60 ml/min/1.73 sqM); Sodium 138 mmol/L (137-145)
[2024-09-23] MEDS: HEPARIN SODIUM,PORCINE 5,000 UNIT/ML 1 ML VIAL SQ PRN (08:58)
--- NOTE | 2024-09-23 08:58 | P.ANPRN ---
Procedure Note - Anesthesia - Nerve Block Performed Bilateral Erector Spinae Single Time Out Performed: Yes Date of Procedure: 09/23/24 Procedure Start Time: 08:48 Procedure Stop Time: 08:56 Location of Patient: PreOp Indication: Acute Post-Operative Pain, Requested by Surgeon Sedation Type: Sedate with meaningful contact maintained Preparation: Sterile Prep Position: Prone Needle Types: Pajunk Needle Gauge: 21 Ultrasound used to visualize needle placement: Yes Ultrasound used to observe medication spread: Yes Injectate: 0.5% Ropivacaine (see comment for volume) (20 mL +10 mL of normal saline +4 mg dexamethasone per side) Blood Aspirated: No Pain Paresthesia on Injection Noted: No Resistance on Injection: Normal Image Stored and Saved: Yes Events: Uneventful and Well Tolerated
[2024-09-23] MEDS: MIDAZOLAM 2 MG/2 ML VIAL IV PRN (09:09)
[2024-09-23] MEDS: fentaNYL (PF) 50 MCG/ML 2 ML AMP IVP PRN (09:09)
[2024-09-23] MEDS: IV FLUID CONTINUATION 1,000 ML IV ONE ×2 (09:12→11:37)
[2024-09-23] MEDS: LIDOCAINE 1%-EPI 1:100,000 20 ML VIAL SQ ONE ×2 (09:44→10:12)
[2024-09-23] MEDS ORDERED: PROPOFOL 10 MG/ML 20 ML VIAL IV ONE (09:46)
[2024-09-23] MEDS ORDERED: SODIUM CHLORIDE 0.9% (PF) 10 ML VIAL ONE (09:46)
[2024-09-23] MEDS ORDERED: NEOSTIGMINE 1 MG/ML 10 ML VIAL ONE (09:46)
[2024-09-23] MEDS ORDERED: ROPIVACAINE 5 MG/ML 30 ML VIAL ONE (09:46)
[2024-09-23] MEDS ORDERED: DEXAMETHASONE SOD PHOSPHATE 4 MG/ML 1 ML VIAL ONE (09:46)
[2024-09-23] MEDS ORDERED: LIDOCAINE 1% INJ 10MG/ML (20 ML MDV) ONE (09:46)
[2024-09-23] MEDS ORDERED: SUCCINYLCHOLINE CHLORIDE 200 MG/10 ML VIAL IV ONE (09:46)
[2024-09-23] MEDS ORDERED: ALBUTEROL HFA INHALER INHALATION ONE (09:46)
[2024-09-23] MEDS ORDERED: ROCURONIUM 10 MG/ML (5 ML VIAL) IV ONE (09:46)
[2024-09-23] MEDS ORDERED: GLYCOPYRROLATE 0.2 MG/ML 2 ML VIAL ONE (09:46)
[2024-09-23] MEDS ORDERED: KETAMINE HCL IN 0.9 % NACL 50 MG/5 ML SYRINGE ONE (09:46)
[2024-09-23] MEDS ORDERED: fentaNYL (PF) 50 MCG/ML 2 ML AMP ONE (09:46)
[2024-09-23] MEDS: ceFAZolin 2 GM in DEXTROSE 5% IN WATER 50 ML IVPB PRN (09:50)
[2024-09-23] MEDS: ALBUTEROL NEBULIZED 2.5 MG/3 ML INHALATION STA (11:01)
--- NOTE | 2024-09-23 11:03 | P.OP ---
Date of Procedure: 09/23/24 Preoperative Diagnosis: Incarcerated incisional hernia Postoperative Diagnosis: Carcinoid incisional hernia Procedure(s) Performed: Laparoscopic robot-assisted pair of incarcerated incisional hernia Transversus abdominis plane block Anesthesia: CHIQUIS Surgeon: Cj Rodriguez Estimated Blood Loss (ml): 5 Pathology: none sent Operative Findings: 5 cm incisional hernia Description of Procedure: The patient was placed on the operating table in the supine position. He received general anesthesia. His abdomen was prepped and draped usual fashion. Using a 5 mm optical trocar under direct visualization the peritoneal cavity was entered in the left upper quadrant. The abdomen was then insufflated. The laparoscope was placed back into the perineal cavity. Next a 8 mm robotic trocar was placed in the left lower quadrant and a 12 mm robotic trocar was placed in the left lateral position. The original 5 mm trocar was exchanged for a 8 mm robotic trocar. The patient's placed in the left side up position. And the patient was docked to the robot. A four-quadrant transversus abdominis plane block was performed 1% local Xylocaine. The incisional hernia was visualized. Using hook cautery the peritoneum over the incisional hernia was excised. The omentum was reduced. The fascial opening was repaired using 0V LOC suture. Next a piece of 11 cm round ventral light ST mesh was placed into the. Cavity and secured with 2 OV lock suture. The patient was undocked the robot. The needles were retrieved. The fascia of the 12 mm trocar site was closed with 0 Ethibond suture. Skin was closed interrupted 3-0 Monocryl suture. Dermabond dressings was applied. Patient tolerated procedure well and was sent to recovery room stable condition.
[2024-09-23 11:04] VITALS: TEMP 97
[2024-09-23 11:17] LABS: Glucose,Whole Blood 155 mg/dL (70-110)
[2024-09-23 12:39] VITALS: RESP 18
[2024-09-23 13:01] VITALS: BP 127/77; PULSE 90
== END 2024-09-23 13:17 | disposition home or self-care (01) ==
LOC: OR 07:46 → EDSTATUS 09:10 → OR 13:17
PROVIDERS: ATTEND Surgery
DX: K43.0 Incisional hernia with obstruction, without gangrene (principal); G89.18 Other acute postprocedural pain; I10 Essential (primary) hypertension; E78.5 Hyperlipidemia, unspecified; J45.909 Unspecified asthma, uncomplicated; E11.9 Type 2 diabetes mellitus without complications; E07.9 Disorder of thyroid, unspecified; F41.9 Anxiety disorder, unspecified; F31.9 Bipolar disorder, unspecified; K21.9 Gastro-esophageal reflux disease without esophagitis; E66.01 Morbid (severe) obesity due to excess calories; Z79.4 Long term (current) use of insulin; Z79.890 Hormone replacement therapy; Z79.899 Other long term (current) drug therapy; Z68.37 Body mass index [BMI] 37.0-37.9, adult
CPT/HCPCS: 49594; 64468; 80048; C1781; J2250; J0330; J1644; J1100; J2710; J0690; J2405; J2003; J3010; J2795; J2704; J1596